=== PATIENT | male | born 1945 | race Caucasian/White ===

== ENCOUNTER → 2021-11-10 | Outpatient (CLI) | payer OTHER ==
[2021-11-11 08:11] LABS: COMPLEMENT C3, SERUM 148 mg/dL (82-167); COMPLEMENT C4, SERUM 22 mg/dL (12-38)
[2021-11-11 20:07] LABS: ANTI-DSDNA ANTIBODIES <1 IU/mL (0-9); SJOGREN'S ANTI-SS-A <0.2 AI (0.0-0.9); SJOGREN'S ANTI-SS-B <0.2 AI (0.0-0.9); SMITH ANTIBODIES <0.2 AI (0.0-0.9)
== END | disposition home or self-care (01) ==
LOC: LAB SHORT 08:35
PROVIDERS: Internal Medicine
DX: R21 Rash and other nonspecific skin eruption (principal)
CPT/HCPCS: 85651; 86160

== ENCOUNTER → 2021-11-28 | Outpatient (CLI) | payer OTHER | END | disposition home or self-care (01) | LOC: LAB SHORT 14:52 | DX: L30.8 Other specified dermatitis (principal); L40.8 Other psoriasis | CPT/HCPCS: 88305; 88312 ==

== ENCOUNTER → 2022-09-12 | Outpatient (CLI) | payer OTHER ==
[~2022-09-12] MED LIST: FINA5; GLIMEPIRIDE4 MG; LOSARTAN-HCTZ1 EAC6 PO; METF500; PRAVASTATIN SOD20 MG PO; TAMSULOSIN HCL0.4 M1 PO
[2022-09-12 13:33] LABS: BASOPHILS ABSOLUTE AUTO 0.02 K/mm3 (0.00-0.23); BASOPHILS PERCENT AUTO 0 % (0-2); EOSINOPHILS ABSOLUTE AUTO 0.06 K/mm3 (0.00-0.68); EOSINOPHILS PERCENT AUTO 1 % (0-6); Hematocrit 36.8 % (37.0-53.0); Hemoglobin 12.3 g/dL (13.5-17.5); IMMATURE GRAN ABSOLUTE AUTO 0.04 K/mm3 (0.00-0.10); IMMATURE GRAN PERCENT AUTO 1 % (0-1); LYMPHOCYTES ABSOLUTE AUTO 1.38 K/mm3 (0.84-5.20); LYMPHOCYTES PERCENT AUTO 20 % (21-46); MONOCYTES PERCENT AUTO 9 % (4-13); Mean Corpuscular HGB 31.1 pg (26.0-34.0); Mean Corpuscular HGB Conc 33.4 g/dL (31.5-36.5); Mean Corpuscular Volume 93 fL (80-100); Mean Platelet Volume 10.2 fL (9.1-12.4); NEUTROPHILS ABSOLUTE AUTO 4.98 K/mm3 (1.96-9.15); NEUTROPHILS PERCENT AUTO 70 % (41-73); Platelet Count 327 K/mm3 (150-400); RDW Coefficient Variation 15.5 % (11.7-14.2); RDW Standard Deviation 53.2 fL (35.1-46.3); Red Blood Cell Count 3.96 M/mm3 (4.30-5.90); White Blood Cell Count 7.08 K/mm3 (4.00-11.30)
[2022-09-12 13:49] LABS: Albumin, Blood 3.9 g/dL (3.4-5.0); Albumin/Globulin Ratio 1.1 (0.8-1.8); Bilirubin, Total 0.7 mg/dL (0.1-1.0); Bun/Creatinine Ratio 12.4 (12.0-20.0); Calcium, Blood 9.4 mg/dL (8.5-10.1); Creatinine, Blood 1.05 mg/dL (0.60-1.20); Globulin, Blood 3.6 g/dL (2.2-4.0); Potassium, Blood 4.3 mmol/L (3.5-5.5); Total Protein, Blood 7.5 g/dL (6.4-8.2)
== END | disposition home or self-care (01) ==
LOC: LAB SHORT 13:29 → LAB 13:29
PROVIDERS: Physician Assistant
DX: R07.9 Chest pain, unspecified (principal)
CPT/HCPCS: 80053; 83690; 84484; 85025

== ENCOUNTER 2023-08-24 14:03 | Inpatient (IN) | payer OTHER ==
[~2023-08-24] VITALS: Ht 177.8 cm; Wt 89.8 kg
[~2023-08-24 14:03] MED LIST changes: -FINA5; +FINA5 PO
[2023-08-24 14:35] LABS: BASOPHILS ABSOLUTE AUTO 0.06 K/mm3 (0.00-0.23); BASOPHILS PERCENT AUTO 0 % (0-2); EOSINOPHILS ABSOLUTE AUTO 0.06 K/mm3 (0.00-0.68); EOSINOPHILS PERCENT AUTO 0 % (0-6); Hematocrit 43.1 % (37.0-53.0); Hemoglobin 14.6 g/dL (13.5-17.5); IMMATURE GRAN ABSOLUTE AUTO 0.31 K/mm3 (0.00-0.10); IMMATURE GRAN PERCENT AUTO 2 % (0-1); LYMPHOCYTES ABSOLUTE AUTO 0.82 K/mm3 (0.84-5.20); LYMPHOCYTES PERCENT AUTO 5 % (21-46); MONOCYTES ABSOLUTE AUTO 1.81 K/mm3 (0.16-1.47); MONOCYTES PERCENT AUTO 11 % (4-13); Mean Corpuscular HGB Conc 33.9 g/dL (31.5-36.5); Mean Corpuscular Volume 92 fL (80-100); Mean Platelet Volume 9.3 fL (9.1-12.4); NEUTROPHILS PERCENT AUTO 81 % (41-73); Platelet Count 603 K/mm3 (150-400); RDW Coefficient Variation 13.2 % (11.7-14.2); Red Blood Cell Count 4.71 M/mm3 (4.30-5.90); White Blood Cell Count 16.56 K/mm3 (4.00-11.30)
[2023-08-24 15:04] LABS: Albumin, Blood 2.5 g/dL (3.4-5.0); Albumin/Globulin Ratio 0.5 (0.8-1.8); Bilirubin, Total 0.9 mg/dL (0.1-1.0); Bun/Creatinine Ratio 33.2 (12.0-20.0); Calcium, Blood 10.2 mg/dL (8.5-10.1); Creatinine, Blood 0.93 mg/dL (0.60-1.20); Globulin, Blood 4.9 g/dL (2.2-4.0); Magnesium, Blood 2.4 mg/dL (1.6-2.4); Potassium, Blood 3.9 mmol/L (3.5-5.5); Total Protein, Blood 7.4 g/dL (6.4-8.2)
[2023-08-24 19:55] LABS: Source, Urine Voided
[2023-08-24 19:59] LABS: Appearance, Urine Clear (Clear); Bilirubin, Urine Neg (Neg); Blood, Urine Neg (Neg); Color, Urine Yellow (P-Yellow); Glucose Qualitative, Urine 4+ (Neg); Ketones, Urine 4+ (Neg); Leukocyte Esterase, Urine Neg (Neg); Nitrite, Urine Neg (Neg); Protein, Urine Neg (Neg); Urobilinogen, Urine NORM (Normal)
[2023-08-24 20:41] LABS: Bun/Creatinine Ratio 35.8 (12.0-20.0); Creatinine, Blood 0.92 mg/dL (0.60-1.20); Potassium, Blood 3.9 mmol/L (3.5-5.5)
[2023-08-24 21:32] LABS: PCO2 Venous 27.3 mmHg (38-42); pH Blood Venous 7.28 (7.34-7.37)
[2023-08-24 21:33] LABS: Base Excess Venous -14 mmol/L; Bicarbonate Venous 14.8 mmol/L (24.0-30.0)
[2023-08-24 21:37] LABS: Beta-hydroxybutyrate 68.1 mg/dL (0.2-2.8)
[2023-08-25] VITALS (30 sets, daily range): BP systolic 91–147; BP diastolic 55–82
[2023-08-25 01:43] LABS: Albumin, Blood 1.9 g/dL (3.4-5.0); Anion Gap 17 mmol/L (6-16); Blood Urea Nitrogen 33 mg/dL (8-24); Bun/Creatinine Ratio 37.7 (12.0-20.0); CO2, Blood 16 mmol/L (21-32); Calcium, Blood 8.7 mg/dL (8.5-10.1); Chloride, Blood 102 mmol/L (98-108); Creatinine, Blood 0.88 mg/dL (0.60-1.20); Glomerular Filtration Rate 90 (60-); Glucose, Blood 229 mg/dL (70-99); Phosphorus, Blood 3.8 mg/dL (2.5-4.9); Potassium, Blood 3.7 mmol/L (3.5-5.5); Sodium, Blood 135 mmol/L (136-145)
[2023-08-25 03:24] LABS: Base Excess Venous -8.1 mmol/L; Bicarbonate Venous 18.1 mmol/L (24.0-30.0); PCO2 Venous 36.2 mmHg (38-42); pH Blood Venous 7.31 (7.34-7.37)
[2023-08-25 06:00] LABS: Albumin, Blood 1.9 g/dL (3.4-5.0); Anion Gap 17 mmol/L (6-16); Blood Urea Nitrogen 28 mg/dL (8-24); Bun/Creatinine Ratio 41.5 (12.0-20.0); CO2, Blood 15 mmol/L (21-32); Calcium, Blood 8.8 mg/dL (8.5-10.1); Chloride, Blood 102 mmol/L (98-108); Creatinine, Blood 0.68 mg/dL (0.60-1.20); Glomerular Filtration Rate 97 (60-); Glucose, Blood 261 mg/dL (70-99); Phosphorus, Blood 2.6 mg/dL (2.5-4.9); Potassium, Blood 3.4 mmol/L (3.5-5.5); Sodium, Blood 134 mmol/L (136-145)
[2023-08-25] MEDS ORDERED: METO25ER PO (07:51)
[2023-08-25] MEDS ORDERED: JARDIANCE25 MG PO (07:52)
[2023-08-25] MEDS ORDERED: ELIQUIS5 M2 PO (07:53)
[2023-08-25 09:38] LABS: Anion Gap 13 mmol/L (6-16); Blood Urea Nitrogen 24 mg/dL (8-24); Bun/Creatinine Ratio 33.1 (12.0-20.0); CO2, Blood 18 mmol/L (21-32); Calcium, Blood 9.2 mg/dL (8.5-10.1); Chloride, Blood 103 mmol/L (98-108); Creatinine, Blood 0.73 mg/dL (0.60-1.20); Glomerular Filtration Rate 95 (60-); Glucose, Blood 207 mg/dL (70-99); Phosphorus, Blood 2.1 mg/dL (2.5-4.9); Potassium, Blood 3.3 mmol/L (3.5-5.5); Sodium, Blood 134 mmol/L (136-145)
[2023-08-25 09:49] LABS: Magnesium, Blood 2.2 mg/dL (1.6-2.4); Phosphorus, Blood 2.1 mg/dL (2.5-4.9)
--- NOTE | 2023-08-25 13:04 | NUR ---
Assumed care of pt on arrival to ICU 8 from emergency department. Telephone report received from oylie RN, Av GLEZ. Pt arrived with Klarissa HEREDIA. D5 1/2 at 150 mL/hr and insulin at 2 units/hr on arrival. Pt A&O x 4. Answers questions, follows commands, verbalizes needs. Pleasant and cooperative with care. Stood to transfer from gurney to bed with 1 person assist. Afib per monitor, rate 90s at rest and up to 150 with activity. SpO2 90% or greater RA. BP stable. CBG stable. States he is a type 2 diabetic and manages diabetes with pills. Pt reports large amount of intentional weight loss, but does not quantify it. States he had an episode of vomiting one week from last Sunday and has been eating poorly since. Denies abdominal pain or nausea. States last bowel movement was on 08/23. States he does not have an appetite. This RN placed call pt's spouse to notify her that he had been moved out of the ER. Pt talked to his spouse for a few minutes afterwards. Dr Stuart in to see patient at 0845. Discussed hypokalemia and fluids given in ER, provider orders 1L NS bolus and IV potassium. Pt's home meds ordered by provider with exception of oral antidiabetic agents and losartan/HCTZ. Information that pt provided about weight loss, diabetes, and recent illness discussed with Dr Stuart. Plan to keep pt on insulin drip for now, continue Q1H CBG, and feed patient now. Pt's spouse, Arianne, in to visit around 1100. She reports that pt has had about 60 pounds of weight loss within the last 6 months. States that weight loss started intentionally, when pt was "around 240 pounds" but quickly became unintentional. She confirms that he has not been eating during past week. She also states that his mentation has changed in the past two months. Arianne discusses patient's flaking skin and states it is secondary to a recation to COVID vaccine that he received "two years ago in May". States that skin has been biopsied and patient has been worked up for various immune disorders r/t to vaccine administration. This RN placed call to Dr Stuart to relay information to provider. She came to bedside to discuss Arianne's concerns and pt's plan of care.
[2023-08-25 15:31] LABS: Albumin, Blood 1.9 g/dL (3.4-5.0); Albumin/Globulin Ratio 0.5 (0.8-1.8); Bilirubin, Total 0.5 mg/dL (0.1-1.0); Bun/Creatinine Ratio 33.8 (12.0-20.0); Calcium, Blood 8.7 mg/dL (8.5-10.1); Creatinine, Blood 0.77 mg/dL (0.60-1.20); Magnesium, Blood 2.1 mg/dL (1.6-2.4); Phosphorus, Blood 1.5 mg/dL (2.5-4.9); Total Protein, Blood 5.9 g/dL (6.4-8.2)
--- NOTE | 2023-08-25 17:58 | NUR ---
SUMMARY Neuro: Pt A&O x 4. Pt reports he is more foggy than typical. PERRL. Pleasant and cooperative with care. Follows commands. Verbalizes needs Musc/ADLs: Moves all extremities with equal strength and range of motion. Profoundly weak. Poor activity tolerance. Pt becomes tachycardic with activity, HR averaging 130s and 140s. Able to stand to use urinal and transfer to chair with one person assist and FWW. Pt states that his hips and knees feel stiff. States this is not his baseline. States he does not use cane or walker at baseline but has been using one "for the last two days". Resp: Lungs clear t/o. SpO2 90% or greater RA. Cardiac: Atrial fibrillation with rate in the 90s at rest. HR 130s and 140s with activity. BP stable. Trace edema BLE, pt states this is baseline for him. Capillary refill <3 seconds BUE and BLE. GI: Patient reports he feels food "gets stuck" when he tries to swallow it. ST ordered and recommendations given. This RN downgraded diet to mechanical soft becuase pt stated he may be able to swallow with more ease if food is ground up. Pt often reports thirst and has good intake of PO fluids. Off insulin drip. Holding oral antidiabetic drugs because pt had CT scan with contrast today to evaluate chest/abd/pelvis. : Good output into urinal today. Skin: Unchanged from initial assessment. Family contact: Placed call to pt's spouse, Arianne, to notify of ICU arrival. She came in to see patient around 1100 and departed during early afternoon. She met with Dr Stuart to discuss pt's health hx. Notified Arianne during late afternoon that pt will potentially be transferring out of the ICU as he is no longer on the insulin drip. States that she, her son, and her son's partner, plan on visiting the patient tomorrow.
[2023-08-26 03:40] VITALS: BP 129/79
--- NOTE | 2023-08-26 05:57 | NUR ---
SHIFT SUMMARY NO ACUTE EVENTS T/O NIGHT. PT A/O X 3. FORGETFUL AT TIMES, PT DID TRY TO GET OOB WITHOUT CALLING FOR ASSISTANCE. THIS AM PT USING CALL LIGHT PRIOR TO GETTING OOB AFTER EDUCATION. VSS. HR INCREASED TO 150'S WHEN AMBULATING, 80-90'S AT REST. ONE PERSON ASSIST TO STAND TO USE URINAL. CALL TO HOSP THIS AM D/T PT C/O JOINT PAIN AND STIFFNESS. ORDER RECEIVED FOR TORADOL AND BENGAY CREAM. PT REPORTS FEELING BETTER AND IS ABLE TO AMBULATE EASIER. PT UP TO THE CHAIR FOR APPROX 3 HOURS T/O NIGHT. WILL REPORT OFF TO ONCOMING RN.
[2023-08-26 07:44] LABS: BASOPHILS ABSOLUTE AUTO 0.04 K/mm3 (0.00-0.23); BASOPHILS PERCENT AUTO 0 % (0-2); EOSINOPHILS ABSOLUTE AUTO 0.04 K/mm3 (0.00-0.68); EOSINOPHILS PERCENT AUTO 0 % (0-6); Hematocrit 38.8 % (37.0-53.0); Hemoglobin 13.1 g/dL (13.5-17.5); IMMATURE GRAN ABSOLUTE AUTO 0.26 K/mm3 (0.00-0.10); IMMATURE GRAN PERCENT AUTO 2 % (0-1); LYMPHOCYTES ABSOLUTE AUTO 0.86 K/mm3 (0.84-5.20); LYMPHOCYTES PERCENT AUTO 5 % (21-46); MONOCYTES ABSOLUTE AUTO 1.99 K/mm3 (0.16-1.47); MONOCYTES PERCENT AUTO 13 % (4-13); Mean Corpuscular HGB 30.8 pg (26.0-34.0); Mean Corpuscular HGB Conc 33.8 g/dL (31.5-36.5); Mean Corpuscular Volume 91 fL (80-100); NEUTROPHILS ABSOLUTE AUTO 12.68 K/mm3 (1.96-9.15); NEUTROPHILS PERCENT AUTO 80 % (41-73); Platelet Count 567 K/mm3 (150-400); RDW Coefficient Variation 13.6 % (11.7-14.2); RDW Standard Deviation 45.9 fL (35.1-46.3); Red Blood Cell Count 4.25 M/mm3 (4.30-5.90); White Blood Cell Count 15.87 K/mm3 (4.00-11.30)
[2023-08-26 08:03] LABS: Albumin/Globulin Ratio 0.5 (0.8-1.8); Bilirubin, Total 0.7 mg/dL (0.1-1.0); Bun/Creatinine Ratio 28.3 (12.0-20.0); Calcium, Blood 9.4 mg/dL (8.5-10.1); Creatinine, Blood 0.81 mg/dL (0.60-1.20); Globulin, Blood 4.2 g/dL (2.2-4.0); Total Protein, Blood 6.2 g/dL (6.4-8.2)
[2023-08-26 08:19] VITALS: BP 115/70
--- NOTE | 2023-08-26 08:20 | NUR ---
INITIAL ASSESSMENT PATIENT SLEEPING SOUNDLY UPON ENTERING ROOM. PATIENT CALM, COOPERATIVE AND PLEASANT. PATIENT ALERT AND ORIENTED X 4; FORGETFUL OCCASIONALLY. PATIENT AFEBRILE. PATIENT STATES HE HAS BEEN HAVING KNEE AND JOINT PAIN BUT THAT THE BENGAY CREAM AND TORADOL GIVEN EARLY THIS AM HAS MADE THE PAIN "MUCH BETTER". REPORT THAT PATIENT 1 PA IN ROOM. PATIENT WEAK BUT ABLE TO MOVE ALL EXTREMITIES. PATIENT SATTING 90% AND GREATER ON RA WHILE AWAKE. PATIENT DOES HAVE APNEIC PERIODS OCCASIONALLY WHILE SLEEPING. PATIENT IN A. FIB WITH PVCS, HR IN THE 90S. SBP IN THE 1-TEENS. 1+ EDEMA NOTED TO BLES. GI APPEARS WNL. WNL. PATIENT TAKES SCHEDULED FLOMAX. SKIN PALE. PEELING NOTED TO SKIN ON FACE. IVS FLUSHED AND SALINE LOCKED. BED LOW, CALL LIGHT IN REACH. CARE CONTINUES.
--- NOTE | 2023-08-26 10:44 | NUR ---
SHIFT SUMMARY PATIENT HAS REMAINED EITHER AWAKE AND ORIENTED WHEN NURSE IN ROOM OR SLEEPING WHEN NURSE NOT IN ROOM. PATIENT HAS REMAINED AFEBRILE. PATIENT STATES PAIN IS STILL MANAGEABLE AFTER DERRICK WORKER BENGAY AND TORADOL. PATIENT REMAINS SATTING 90% AND GREATER ON RA WHILE AWAKE BUT IS HAVING SOME APNEIC EPISODES WHILE SLEEPING. PATIENT HAS REMAINED IN A. FIB WITH PVCS, HR IN THE 90S. SBP IN THE 1-TEENS. NO BM THIS SHIFT. PATIENT ATE ALL OF BREAKFAST. NO VOID YET THIS SHIFT. NO CHANGES TO SKIN NOTED. PATIENT REPOSITIONED Q2H. BLOOD SUGAR 217 THIS AM; COVERAGE ADMINISTERED. PATIENT HAS NO COMPLAINTS AT THIS TIME. REPORT GIVEN TO ASSUMING MEDICAL FLOOR RN.
--- NOTE | 2023-08-26 11:06 | NUR ---
TRANSFER NOTE PT TRANSFERRED FROM ICU, REPORT RECEIVED FROM YAN ARRINGTON. PT ORIENTED TO THE ROOM. SBA TO THE BATHROOM USING THE FWW. NO COMPLAINTS AT THIS TIME.
--- NOTE | 2023-08-26 11:09 | NUR ---
PATIENT SUCCESSFULLY TRANSFERRED TO MEDICAL FLOOR, ROOM 326. ALL BELONGINGS SENT WITH PATIENT. INFORMED OF TRANSFER.
[2023-08-26 15:11] VITALS: BP 140/70
--- NOTE | 2023-08-26 18:24 | NUR ---
SHIFT SUMMARY PT AOX4, I ASSIST WITH THE FWW AND GB. TRANSFERRED FROM ICU THIS SHIFT. DURING DINNER BLOOD SUGAR CHECKS, A NURSE NOTICED HE WAS FLUSH AND DIAPHORETIC. CALL MADE TO THE PROVIDER BY YAN KAY. ORDERS OBTAINED. PT HAD A FEVER. SEE EMAR FOR ORDERS. PT GIVEN MEDICATIONS PER THE EMAR. PT IS NOW RESTING COMFORTABLY AND SLEEPING. STAT LABS DRAWN AND AWAITING RESULTS. CALL LIGHT WITHIN REACH, BED IN THE LOWEST POSITION. WILL REPORT TO ONCOMING NURSE.
--- NOTE | 2023-08-26 18:39 | NUR ---
LATE ENTRY COVERING FOR YAN MODI. PT RUNNING 102.[address] ABAD NOTIFIED, TYLENOL AND ANTIBIOTICS ORDERED WELL BLOOD CULTURES. YAN MODI UPDATED.
[2023-08-26 19:23] VITALS: BP 113/68
[2023-08-27 03:20] VITALS: BP 149/85
[2023-08-27 05:26] LABS: BASOPHILS ABSOLUTE AUTO 0.04 K/mm3 (0.00-0.23); BASOPHILS PERCENT AUTO 0 % (0-2); EOSINOPHILS ABSOLUTE AUTO 0.04 K/mm3 (0.00-0.68); EOSINOPHILS PERCENT AUTO 0 % (0-6); Hematocrit 33.3 % (37.0-53.0); Hemoglobin 11.5 g/dL (13.5-17.5); IMMATURE GRAN ABSOLUTE AUTO 0.29 K/mm3 (0.00-0.10); IMMATURE GRAN PERCENT AUTO 2 % (0-1); LYMPHOCYTES PERCENT AUTO 3 % (21-46); MONOCYTES PERCENT AUTO 9 % (4-13); Mean Corpuscular HGB 31.1 pg (26.0-34.0); Mean Corpuscular HGB Conc 34.5 g/dL (31.5-36.5); Mean Corpuscular Volume 90 fL (80-100); Mean Platelet Volume 9.3 fL (9.1-12.4); NEUTROPHILS ABSOLUTE AUTO 13.31 K/mm3 (1.96-9.15); NEUTROPHILS PERCENT AUTO 85 % (41-73); Platelet Count 499 K/mm3 (150-400); RDW Coefficient Variation 13.7 % (11.7-14.2); White Blood Cell Count 15.58 K/mm3 (4.00-11.30)
[2023-08-27 05:57] LABS: Bun/Creatinine Ratio 35.4 (12.0-20.0); Calcium, Blood 8.7 mg/dL (8.5-10.1); Creatinine, Blood 0.76 mg/dL (0.60-1.20); Potassium, Blood 3.6 mmol/L (3.5-5.5)
--- NOTE | 2023-08-27 06:40 | NUR ---
NOC SHIFT SUMMARY: TEMPERATURE 101.6 AT 0320. TYELNOL GIVEN. TEMP DOWN TO 98.6. PATIENT A&O X4. PATIENT UP WITH SBA WITH WALKER AND GAIT BELT. DRY, PEELING SKIN. CAME IN FOR DIABETIC KETOACIDOSIS. PROBABLE SNF FOR REHAB.
[2023-08-27 07:39] VITALS: BP 108/67
[2023-08-27 15:28] VITALS: BP 136/73
--- NOTE | 2023-08-27 17:39 | NUR ---
SHIFT SUMMARY NO ACUTE CHANGES, PT MEDICATED FOR PAIN PER THE EMAR. HE DID HAVE A SLIGHT TEMPERATURE THIS EVENING, MEDICATED WITH TYLENOL. FAMILY AT THE BS T/O THE SHIFT. PT MOTIVATED TO WORK WITH PT AND OT. ICE PACKS ADMINISTERED PER THE PT REQUEST FOR HIS NECK AND RIGHT SHOULDER. CALL LIGHT WITHIN REACH, BED IN THE LOWEST POSITION. WILL REPORT TO ONCOMING NURSE.
[2023-08-27 19:58] VITALS: BP 119/70
[2023-08-28 02:20] VITALS: BP 126/75
[2023-08-28 05:46] LABS: BASOPHILS ABSOLUTE AUTO 0.04 K/mm3 (0.00-0.23); BASOPHILS PERCENT AUTO 0 % (0-2); EOSINOPHILS ABSOLUTE AUTO 0.03 K/mm3 (0.00-0.68); EOSINOPHILS PERCENT AUTO 0 % (0-6); Hematocrit 34.7 % (37.0-53.0); Hemoglobin 11.5 g/dL (13.5-17.5); IMMATURE GRAN PERCENT AUTO 2 % (0-1); LYMPHOCYTES ABSOLUTE AUTO 0.71 K/mm3 (0.84-5.20); LYMPHOCYTES PERCENT AUTO 4 % (21-46); MONOCYTES ABSOLUTE AUTO 1.64 K/mm3 (0.16-1.47); MONOCYTES PERCENT AUTO 9 % (4-13); Mean Corpuscular HGB 30.7 pg (26.0-34.0); Mean Corpuscular HGB Conc 33.1 g/dL (31.5-36.5); Mean Corpuscular Volume 93 fL (80-100); NEUTROPHILS ABSOLUTE AUTO 14.91 K/mm3 (1.96-9.15); NEUTROPHILS PERCENT AUTO 85 % (41-73); Platelet Count 504 K/mm3 (150-400); RDW Coefficient Variation 14.1 % (11.7-14.2); RDW Standard Deviation 47.7 fL (35.1-46.3); Red Blood Cell Count 3.74 M/mm3 (4.30-5.90); White Blood Cell Count 17.63 K/mm3 (4.00-11.30)
[2023-08-28 06:29] LABS: Albumin, Blood 1.8 g/dL (3.4-5.0); Albumin/Globulin Ratio 0.5 (0.8-1.8); Bilirubin, Total 0.7 mg/dL (0.1-1.0); Bun/Creatinine Ratio 28.3 (12.0-20.0); Calcium, Blood 8.8 mg/dL (8.5-10.1); Creatinine, Blood 0.71 mg/dL (0.60-1.20); Globulin, Blood 3.9 g/dL (2.2-4.0); Potassium, Blood 4.1 mmol/L (3.5-5.5); Total Protein, Blood 5.7 g/dL (6.4-8.2)
--- NOTE | 2023-08-28 07:32 | NUR ---
NOC SHIFT SUMMARY ADMITTED WITH DKA. BG AC & HS. TRAMADOL NEEDED FOR PAIN. NS AT 100 ML/HR. VERY WEAK. UP WITH 1 TO 2 WITH WALKER AND GAIT BELT. USES URINAL TO VOID. PT RECOMMENDING HOME WITH HOME HEALTH. MECHANICAL SOFT DIET.
[2023-08-28 07:36] VITALS: BP 121/70
--- NOTE | 2023-08-28 10:54 | NUR ---
NO SS OF DISTRESS, PLEASANT TO CARE, ALERT AND ORIENTED X4, DR CABALLERO ROUNDED, PATIENT TO STAY THE NIGHT, PATIENT DENIES FURTHER QUESTIONS AT THIS POINT, USING BSU, CALL LIGHT WITH IN REACH
[2023-08-28 16:13] VITALS: BP 106/63
--- NOTE | 2023-08-28 18:19 | NUR ---
NO ACUTE CHANGES, MOEMENT AND AMBULATION IMPROVED TODAY, PATIENT EDUCATED ON PAIN SCALE, MEDICATED WITH TYLENOL AND TRAMODOL, PATIENT REPORTS RELIEF, OT/PT WORKED WITH PATIENT, DENIES NV, ALERT AND ORIENTED X4, DIM LUNG SOUNDS 94% ON RA, TEMPS UNDER 99 TODAY, CALL LIGHT WITH IN REACH, WILL RELAY TO PM RN
[2023-08-28 20:03] VITALS: BP 106/63
[2023-08-29 02:49] VITALS: BP 114/73
--- NOTE | 2023-08-29 04:36 | NUR ---
NOC SHIFT SUMMARY: TRAMADOL AND TYLENOL NEEDED FOR PAIN. UP WITH SBA AND WALKER. A&O X4. DISCHARGE PLAN TO HOME WITH HOME HEALTH. CALLS APPROPRIATELY.
[2023-08-29 06:04] LABS: Albumin, Blood 1.7 g/dL (3.4-5.0); Anion Gap 8 mmol/L (6-16); Blood Urea Nitrogen 19 mg/dL (8-24); Bun/Creatinine Ratio 30.3 (12.0-20.0); CO2, Blood 21 mmol/L (21-32); Calcium, Blood 8.9 mg/dL (8.5-10.1); Chloride, Blood 104 mmol/L (98-108); Creatinine, Blood 0.63 mg/dL (0.60-1.20); Glomerular Filtration Rate 99 (60-); Glucose, Blood 193 mg/dL (70-99); Phosphorus, Blood 2.8 mg/dL (2.5-4.9); Potassium, Blood 4.1 mmol/L (3.5-5.5); Sodium, Blood 133 mmol/L (136-145)
[2023-08-29 07:35] VITALS: BP 116/77
[2023-08-29 15:25] VITALS: BP 111/90
--- NOTE | 2023-08-29 19:30 | NUR ---
NO ACUTE CHANGES, PATIENTS DISCHARGE HELD FOR HIM TO BE PLACED IN A SNF FOR MORE STRENGTH BUILD UP. MAKES NEEDS KNOWN CALL LIGHT WITH IN REACH, IVF DISCONTINUED, TELE DISCONTINUED, PATIENT PLEASANT TO STAFF, MAKES NEEDS KNOWN, ALERT AND ORIENTED X4, USES CALL LIGHT APPRIOPRIATELY, RELAYED TO OFELIA KISER RN
[2023-08-29 19:41] VITALS: BP 131/69
[2023-08-30 04:00] VITALS: BP 118/67
--- NOTE | 2023-08-30 05:09 | NUR ---
SHIFT SUMMARY PT WAS SUPPOSED TO GO TODAY BUT DC WAS DELAYED. PT LAYING STILL IN BED C/O SIGNIFITANT PAIN TO JOINTS THROUGHOUT BODY AND BEING MEDICATED PER PROTOCAL. VSS NO DISTRESS IS AWAITNG DC AFTER SEEING PT THIS MORNING. PT MAKES NEEDS MET AND WILL CALL IF NEEDING ASSIATENCE
[2023-08-30 06:37] LABS: Bun/Creatinine Ratio 26.3 (12.0-20.0); Calcium, Blood 8.7 mg/dL (8.5-10.1); Creatinine, Blood 0.61 mg/dL (0.60-1.20); Potassium, Blood 4.2 mmol/L (3.5-5.5)
[2023-08-30 07:19] LABS: BASOPHILS ABSOLUTE AUTO 0.04 K/mm3 (0.00-0.23); BASOPHILS PERCENT AUTO 0 % (0-2); EOSINOPHILS ABSOLUTE AUTO 0.03 K/mm3 (0.00-0.68); EOSINOPHILS PERCENT AUTO 0 % (0-6); Hematocrit 34.3 % (37.0-53.0); Hemoglobin 11.5 g/dL (13.5-17.5); IMMATURE GRAN ABSOLUTE AUTO 0.21 K/mm3 (0.00-0.10); IMMATURE GRAN PERCENT AUTO 1 % (0-1); LYMPHOCYTES PERCENT AUTO 5 % (21-46); MONOCYTES ABSOLUTE AUTO 1.61 K/mm3 (0.16-1.47); MONOCYTES PERCENT AUTO 10 % (4-13); Mean Corpuscular HGB 31.1 pg (26.0-34.0); Mean Corpuscular HGB Conc 33.5 g/dL (31.5-36.5); Mean Corpuscular Volume 93 fL (80-100); Mean Platelet Volume 9.1 fL (9.1-12.4); NEUTROPHILS ABSOLUTE AUTO 13.44 K/mm3 (1.96-9.15); NEUTROPHILS PERCENT AUTO 83 % (41-73); Platelet Count 539 K/mm3 (150-400); RDW Coefficient Variation 13.8 % (11.7-14.2); RDW Standard Deviation 46.9 fL (35.1-46.3); White Blood Cell Count 16.13 K/mm3 (4.00-11.30)
[2023-08-30 07:42] VITALS: BP 133/68
--- NOTE | 2023-08-30 11:42 | NUR ---
PT WORKED WITH PATIENT, DR LEON ROUNDED, LEFT KNEE CT DONE, ORTHO CONSULT ENTERED, PATIENT HAS BEEN ACCEPTED AT [facility], DR LEON IS WANTING TO MAKE SURE HIS KNEE GETS EVALUATED BEFORE DISCHARGE TO SNF
--- NOTE | 2023-08-30 12:40 | NUR ---
REPORTED TO DR LEON KNEE CT RESULTS IN AND CONSULT FOR ORTHO CALLED IN
[2023-08-30 15:51] VITALS: BP 129/77
[2023-08-30 16:59] LABS: BODY FLUID RBC 0.026 M/mm3 (0-0)
[2023-08-30 17:07] LABS: BODY FLUID RBC 0.026 M/mm3 (0-0)
[2023-08-30 18:12] LABS: RBC Count, Synovial Fluid 26000 /mm3 (0-0)
[2023-08-30 18:14] LABS: WBC Count, Synovial Fluid 52180 /mm3 (0-180)
[2023-08-30 18:19] LABS: RBC Count, Synovial Fluid 26000 /mm3 (0-0); WBC Count, Synovial Fluid 53660 /mm3 (0-180)
[2023-08-30 18:37] LABS: Lymphs, Synovial Fluid 3 % (0-15); Monocytes/Macrophages, Synovia 12 % (0-65); Neutrophils, Synovial Fluid 85 % (0-24)
[2023-08-30 18:40] LABS: Lymphs, Synovial Fluid 2 % (0-15); Monocytes/Macrophages, Synovia 16 % (0-65); Neutrophils, Synovial Fluid 82 % (0-24)
[2023-08-30 18:41] LABS: Appearance, Synovial Fluid Turbid (Clear); Color, Synovial Fluid Yellow (None-P Yel)
--- NOTE | 2023-08-30 18:49 | NUR ---
PATIENT ALERT AND ORIENTED, PT/OT PATIENT HAS DECLINED IN AMBULATION SNF RECOMMENDED, ACCEPTED AT [facility], LEFT KNEE SWELLING, APIRATION DONE, LABS SENT, PATIENT TO HAVE SURGERY IN AM WITH DR MCKEON, NPO AT MIDNIGHT, ZE KNEES AMY WRAPPED PER DR MCKEON, MEDICATED THROUGH OUT THE DAY WITH TYLENOL AND TRAMADOL, VSS, WILL RELAY TO PM RN
[2023-08-30 19:39] VITALS: BP 129/83
[2023-08-30 21:11] LABS: Body Fluid Crystals POS (NEGATIVE)
[2023-08-30 21:22] LABS: Body Fluid Crystals POS (NEGATIVE)
[2023-08-31 03:29] VITALS: BP 134/69
--- NOTE | 2023-08-31 06:50 | NUR ---
SHIFT SUMMARY PT SCHEDULED FOR SURGERY TODAY, PO FLAQUITA HELD DUE TO POTENTIAL SURGERY AND UNKNOWN EXTENT OF PROCEDURE TO BE COMPLETED. CALLED JORDAN BAKER TO ASK ABOUT HOLDING FLAQUITA, HE STATED HE RECENTLY SAW THE SURGEON DOWNSTAIRS AND TO CALL HER CELLPHONE DR. HASEEB MCKEON CALLED AND UNABLE TO REACH AND UNABLE TO LEAVE VOICEMAILS DUE TO VOICEBOX FULL. PER VOICEMAIL THERES A TEXTLINE TO TEXT, HOWEVER WE HAVE NO WAY OF SECURE TEXTING. FLAQUITA HELD LINDSEY, PT NPO SINCE MIDNIGHT.
[2023-08-31 08:10] VITALS: BP 140/86
[2023-08-31 08:28] LABS: Hematocrit 34.6 % (37.0-53.0); Hemoglobin 11.5 g/dL (13.5-17.5); Mean Corpuscular HGB 30.7 pg (26.0-34.0); Mean Corpuscular HGB Conc 33.2 g/dL (31.5-36.5); Mean Corpuscular Volume 93 fL (80-100); Mean Platelet Volume 9.1 fL (9.1-12.4); Platelet Count 603 K/mm3 (150-400); RDW Coefficient Variation 13.7 % (11.7-14.2); RDW Standard Deviation 46.8 fL (35.1-46.3); Red Blood Cell Count 3.74 M/mm3 (4.30-5.90); White Blood Cell Count 16.76 K/mm3 (4.00-11.30)
[2023-08-31 08:47] LABS: Bun/Creatinine Ratio 25.3 (12.0-20.0); Calcium, Blood 8.9 mg/dL (8.5-10.1); Creatinine, Blood 0.59 mg/dL (0.60-1.20); Potassium, Blood 4.3 mmol/L (3.5-5.5)
[2023-08-31 16:27] VITALS: BP 120/56
--- NOTE | 2023-08-31 17:59 | NUR ---
SUMMARY- PT'S PAIN WAS SEVERE AND OUT OF CONTROL THIS MORNING. X1 DOSE OF KETOROLAC HELPFUL. TRAMADOL Q 8 HRS AND TYLENOL Q 6 HRS DOES NOT CONTROL PAIN WELL. DR. LEON NOTIFIED. PT'S PAIN LEVEL WAS AT THE LOWEST, A 5/10 TODAY, AND THE HIGHEST, A 9/10 TODAY. PT IS EXPERIENCING HIS PAIN IN HIS BILATERAL KNEES. X2 ASSIST TO THE CHAIR TODAY WITH A GAITBELT AND WALKER. AAOX4. ELIQUIS HELD FOR WASHOUT TOMORROW. PT CALM AND COOPERATIVE.
[2023-08-31 20:01] VITALS: BP 112/83
--- NOTE | 2023-09-01 04:50 | NUR ---
SHIFT SUMMARY REPORT RECEIVED, PT A/O UP IN CHAIR, STATES HE IS MUCH BETTER TODAY REGARDING PAIN TO HIS BODY. EXPLAINED HE WOULD BE WELL OFF TO REQUEST PAIN MEDS WHNE THEY ARE DUE INSTEAD OF WAITING FOR THE PAIN TO GROW OUT OF CONTROL. PT DECIDED HE WOULD STAY UP IN CHAIR AND ATTEMPT TO SLEEP SINCE HE WAS COMFORTABLE THAT WAY. MEDICATED FOR GENERAL BODY PAIN. PT NPO ANDZUNILDA POSSIBLY HAVE A PROCEDURE THIS AFTERNOON.
[2023-09-01 05:17] VITALS: BP 128/79
[2023-09-01 08:00] VITALS: BP 118/79
[2023-09-01 08:18] LABS: BASOPHILS ABSOLUTE AUTO 0.08 K/mm3 (0.00-0.23); BASOPHILS PERCENT AUTO 1 % (0-2); EOSINOPHILS ABSOLUTE AUTO 0.06 K/mm3 (0.00-0.68); EOSINOPHILS PERCENT AUTO 0 % (0-6); Hematocrit 35.6 % (37.0-53.0); Hemoglobin 12.2 g/dL (13.5-17.5); IMMATURE GRAN ABSOLUTE AUTO 0.21 K/mm3 (0.00-0.10); IMMATURE GRAN PERCENT AUTO 1 % (0-1); LYMPHOCYTES ABSOLUTE AUTO 0.66 K/mm3 (0.84-5.20); LYMPHOCYTES PERCENT AUTO 4 % (21-46); MONOCYTES ABSOLUTE AUTO 1.08 K/mm3 (0.16-1.47); MONOCYTES PERCENT AUTO 7 % (4-13); Mean Corpuscular HGB Conc 34.3 g/dL (31.5-36.5); Mean Corpuscular Volume 90 fL (80-100); NEUTROPHILS ABSOLUTE AUTO 14.27 K/mm3 (1.96-9.15); NEUTROPHILS PERCENT AUTO 87 % (41-73); Platelet Count 647 K/mm3 (150-400); RDW Coefficient Variation 13.4 % (11.7-14.2); RDW Standard Deviation 44.2 fL (35.1-46.3); Red Blood Cell Count 3.94 M/mm3 (4.30-5.90); White Blood Cell Count 16.36 K/mm3 (4.00-11.30)
[2023-09-01 08:52] LABS: Bun/Creatinine Ratio 32.9 (12.0-20.0); Calcium, Blood 9.4 mg/dL (8.5-10.1); Creatinine, Blood 0.64 mg/dL (0.60-1.20); Potassium, Blood 4.6 mmol/L (3.5-5.5)
[2023-09-01] MEDS ORDERED: ACET325 PO (11:13)
[2023-09-01] MEDS ORDERED: COLCHICINE0.6 MG PO (11:14)
[2023-09-01] MEDS ORDERED: [UNRECOGNIZED DRUG - OTHER] TOP (11:15)
[2023-09-01] MEDS ORDERED: MIRALAX17 GM PO (11:15)
[2023-09-01] MEDS ORDERED: Ultram50 MG PO (11:16)
[2023-09-01] MEDS ORDERED: ZINC220 PO (11:17)
[2023-09-01] MEDS ORDERED: Vitamin B Comple1 EA PO (11:17)
[2023-09-01] MEDS ORDERED: INSULANPEN SC (11:18)
[2023-09-01] MEDS ORDERED: HUMALOG KW100 UNIT/1 SC (11:19)
[2023-09-01] MEDS ORDERED: LOSA50 PO (11:23)
[2023-09-01 12:54] LABS: SARS-Cov-2 (COVID-19) PCR, MMC NEGATIVE (NEGATIVE)
[2023-09-01 15:43] VITALS: BP 135/78
--- NOTE | 2023-09-01 16:49 | NUR ---
REPORT CALLED TO SUHA AT [facility]. IV X 2 REMOVED. PERSONAL BELONGINGS SENT WITH PT. PT TRANSPORTED TO [facility] VIA [facility]. PT STATED HIS HAS ALREADY BEEN NOTIFIED THAT HE IS TRANSFERING OUT OF THE HOSPITAL TODAY.
== END 2023-09-01 17:30 | DRG 638 ==
LOC: ER 14:03 → ERHOLD 14:04 → ICUE 14:04 → MEDS 08-25 16:28 → ICUE 08-25 16:30 → MEDS 08-26 10:54 → ENPENDDIS 09-01 10:53 → MEDS 09-01 17:30
PROVIDERS: Emergency Medicine; Family Medicine; Internal Medicine; Orthopaedic Surgery; Physician Assistant; ADMIT Student in an Organized Health Care Education/Training Program
PROC: 0S9C3ZZ Drainage of Right Knee Joint, Percutaneous Approach (ICD-10-PCS; principal; 2023-08-30)
PROC: 0S9D3ZZ Drainage of Left Knee Joint, Percutaneous Approach (ICD-10-PCS; 2023-08-30)
DX: E11.10 Type 2 diabetes mellitus with ketoacidosis without coma (principal); E44.0 Moderate protein-calorie malnutrition; I48.20 Chronic atrial fibrillation, unspecified; E87.1 Hypo-osmolality and hyponatremia; I48.92 Unspecified atrial flutter; E86.0 Dehydration; Z66 Do not resuscitate; E83.52 Hypercalcemia; M10.9 Gout, unspecified; I10 Essential (primary) hypertension; N40.0 Benign prostatic hyperplasia without lower urinary tract symptoms; E78.00 Pure hypercholesterolemia, unspecified; D75.839 Thrombocytosis, unspecified; R53.81 Other malaise; E87.6 Hypokalemia; E88.09 Other disorders of plasma-protein metabolism, not elsewhere classified; D89.89 Other specified disorders involving the immune mechanism, not elsewhere classified; M17.0 Bilateral primary osteoarthritis of knee; M25.462 Effusion, left knee; M25.461 Effusion, right knee; Z20.822 Contact with and (suspected) exposure to COVID-19; Z68.24 Body mass index [BMI] 24.0-24.9, adult; Z79.01 Long term (current) use of anticoagulants; Z98.890 Other specified postprocedural states; Z87.891 Personal history of nicotine dependence; Z88.8 Allergy status to other drugs, medicaments and biological substances; Z79.899 Other long term (current) drug therapy; Z79.84 Long term (current) use of oral hypoglycemic drugs
CPT/HCPCS: 36415; 71046; 71260; 73700; 74177; 80048; 80053; 80069; 81003; 82010; 82550; 82803; 82947; 83605; 83735; 84100; 84145; 84443; 85025; 85027; 85651; 86038; 87040; 87070; 87075; 87205; 89051; 89060; 92610; 93005; 93010; 96360; 96361; 97110; 97116; 97161; 97165; 97530; 97535; 99285-25; A9270; J0696; J1815; J1885; J1940; J3480; J7030; J7042; J7050; Q9967; U0002

== ENCOUNTER → 2023-09-26 | Outpatient (CLI) | payer OTHER ==
[~2023-09-26] MED LIST changes: +ACET325 PO; +COLCHICINE0.6 MG PO; +ELIQUIS5 M2 PO; +HUMALOG KW100 UNIT/1 SC; +INSULANPEN SC; +JARDIANCE25 MG PO; +LOSA50 PO; +METO25ER PO; +MIRALAX17 GM PO; +Ultram50 MG PO; +Vitamin B Comple1 EA PO; +ZINC220 PO; +[UNRECOGNIZED DRUG - OTHER] TOP
== END ==
LOC: LAB SHORT 14:00 → LAB 14:00
DX: L89.313 Pressure ulcer of right buttock, stage 3 (principal)
CPT/HCPCS: 87070; 87075; 87077; 87147; 87186; 87205

== ENCOUNTER 2025-01-30 08:37 | Day surgery (SDC) | payer OTHER ==
[2025-01-30] VITALS (12 sets, daily range): BP systolic 101–149; BP diastolic 51–83
[~2025-01-30] VITALS: Ht 175.3 cm; Wt 76.7 kg
[~2025-01-30 08:37] MED LIST changes: +CeFAZolin Sodium 2,000 MG in NS 100 ML IV SCH; +Dexamethasone Sod Phos 10 MG/ML 1ML VIAL ONE; +FentaNYL Citrate 50 MCG/ML 5 ML Injection ONE; +GLUCHON PO; +GUAI600T33 PO; +Ketorolac Tromethamine 30mg Vial ONE; +Lactated Ringer's 1,000 ML IV SCH; +METF500 PO; +METF500C PO; +MULVITA; +Ondansetron HCl 2 MG / ML 2ML Vial ONE; +Rocuronium Bromide 10 MG/ML 5ML Injection IV ONE; +Sugammadex Sodium 200 MG/2ML SDV (100 MG/ML) ONE; +THERA-D2000 UNIT PO; +propofoL 20 ML IV ONE
[2025-01-30] MEDS ORDERED: CeFAZolin Sodium 2,000 MG VIAL ONE (08:50)
[2025-01-30] MEDS ORDERED: GLUCHON PO (09:04)
[2025-01-30] MEDS ORDERED: Rocuronium Bromide 10 MG/ML 5ML Injection IV ONE (09:27)
--- NOTE | 2025-01-30 09:28 | NUR ---
Ambulatory in Day Surgery History, Chart, Medications and Allergies reviewed before start of procedure. Pre-Op teaching done. Pt verbalizes understanding. Patient States Post-Procedure ride home has been arranged.
[2025-01-30] MEDS ORDERED: HYDROmorphone HCl 0.5 MG/0.5 ML SYR ONE (10:34)
[2025-01-30] MEDS ORDERED: Bupivacaine 0.5% HCl 5 MG/ML 30MLVIAL ONE (12:09)
[2025-01-30] MEDS ORDERED: Metoclopramide HCl 5MG / ML 2ML Vial ONE (13:20)
[2025-01-30] MEDS ORDERED: OxyCODONE 5 mg/Acetamin 325 mg TABLET PO PRN (14:40)
[2025-01-30] MEDS ORDERED: FentaNYL Citrate 50 MCG/ML 2 ML Injection ONE (14:42)
--- NOTE | 2025-01-30 16:00 | NUR ---
DISCHARGE NOTE PT A&OX4, BREATHING RA, NO NAUSEA, PT MDEICATED FOR PAIN PER MD ORDERS. PT TOLERATING PO INTAKE. GLASSES GIVEN TO . ICE PACK IN PLACE. Patient up to Ambulate independently. Gait steady. Discharge instructions reviewed with patient. Patient verbalizes understanding. Copy given to patient to take home. Dressing to procedure site clean, dry, intact with no visible drainage, swelling, erythema or bruising noted.VSS. Discharged via wheelchair to private car for ride home.
== END 2025-01-30 15:55 | disposition home or self-care (01) ==
LOC: ORSCMMR 08:37 → ORD 10:15 → ORSCMMR 10:15
DX: K40.30 Unilateral inguinal hernia, with obstruction, without gangrene, not specified as recurrent (principal); K41.30 Unilateral femoral hernia, with obstruction, without gangrene, not specified as recurrent; K45.0 Other specified abdominal hernia with obstruction, without gangrene; I10 Essential (primary) hypertension; E11.9 Type 2 diabetes mellitus without complications; I48.91 Unspecified atrial fibrillation; Z79.01 Long term (current) use of anticoagulants; E78.00 Pure hypercholesterolemia, unspecified; Z79.4 Long term (current) use of insulin; N40.0 Benign prostatic hyperplasia without lower urinary tract symptoms; Z79.899 Other long term (current) drug therapy
CPT/HCPCS: 82947; A9270; C1781; J0690; J1100; J1171; J1885; J2405; J2704; J2765; J3010; J7120